=== PATIENT | female | born 1935 | race Caucasian/White ===

== ENCOUNTER 2016-12-30 03:54 | Inpatient (IN) | payer MEDICARE, OTHER ==
[2016-12-30] MEDS ORDERED: DEXTROSE 50%-WATER 25 GM/50 ML DISP.SYRIN IV ONE (04:09)
[2016-12-30] MEDS ORDERED: CALCIUM GLUCONATE 1000 MG/10 ML INJ IV ONE (04:09)
[2016-12-30] MEDS ORDERED: INSULIN REG, HUMAN 100 UNIT/ML 3 ML VIAL (PYX) IV ONE (04:09)
[2016-12-30] MEDS ORDERED: ALBUTEROL SULFATE 0.083% NEB 2.5 MG/3 ML AMPUL NEB ONE ×2 (04:15→04:19)
--- NOTE | 2016-12-30 04:16 | ER Document Report ---
ED General - General Stated Complaint: RESPIRATORY DISTRESS Information source: Emergency Med Personnel Cannot obtain history due to: Unstable vital signs Notes: Patient is an 81-year-old female with past medical history of hypertension, chronic kidney disease with dialysis dependence, COPD, hyperlipidemia, chronic diastolic CHF, who presents by EMS in severe respiratory distress. EMS states the family was extremely unhelpful on scene and did not know patient's medical history. Unclear how long patient's been getting ill but tonight EMS found patient to be in severe respiratory distress, placed her on CPAP and transferred to the emergency department. History is otherwise limited secondary to patient's critical status at time of arrival. TRAVEL OUTSIDE OF THE [place] IN LAST 30 DAYS: No - Related Data Allergies/Adverse Reactions: carbamazepine [From Tegretol] Allergy (Verified 12/30/16 05:11) metformin HCl [From Glucophage] Allergy (Verified 12/30/16 05:11) Home Medications: Current Home Medications Cephalexin [Cephalexin 500 MG Capsule] 1 cap PO QID 12/30/16 [History] Furosemide [Lasix] 20 mg PO ASDIR PRN 12/30/16 [History] Omeprazole Magnesium [Prilosec Otc] 20 mg PO DAILY 12/30/16 [History] RX: Losartan Potassium [Cozaar 25 mg Tablet] 25 mg PO DAILY 12/30/16 [History] RX: Mupirocin [Bactroban 2% Ointment 22 gm] 1 applic TD BID 12/30/16 [History] RX: Nitroglycerin 0.4 mg PO PRN PRN 12/30/16 [History] RX: Tramadol HCl 50 mg PO TID PRN 12/30/16 [History] RX: Zolpidem Tartrate 2.5 mg PO QHS PRN 12/30/16 [History] Sevelamer HCl [Renagel] 1,600 mg PO TID 12/30/16 [History] Past Medical History - General Information source: Emergency Med Personnel Cannot obtain history due to: Unstable vital signs - Social History Smoking Status: Unknown if Ever Smoked Frequency of alcohol use: None Drug Abuse: None Lives with: Family Family History: Reviewed & Not Pertinent - Past Medical History Cardiac Medical History: Reports: Hx Congestive Heart Failure, Hx Coronary Artery Disease, Hx Heart Attack, Hx Hypertension, Hx Peripheral Vascular Disease Pulmonary Medical History: Reports: Hx Pneumonia Neurological Medical History: Reports: Hx Cerebrovascular Accident Endocrine Medical History: Reports: Hx Diabetes Mellitus Type 2, Hx Hypothyroidism Renal/ Medical History: Reports: Hx End Stage Renal Disease, Hx Hemodialysis - Malignancy Medical History: Reports: Hx Colorectal Cancer, Hx Leukemia - Hairy cell leukemia GI Medical History: Reports: Hx Gastroesophageal Reflux Disease, Hx Ulcer Musculoskeltal Medical History: Reports Hx Arthritis - hands Psychiatric Medical History: Reports: Hx Anxiety, Hx Depression Past Surgical History: Reports: Hx Abdominal Surgery - Colon cancer surgery, Hx Cardiac Surgery - pacemaker, Hx Colostomy, Hx Orthopedic Surgery - 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 In respiratory distress HEAD: Atraumatic, normocephalic. EYES: Pupils equal round and reactive to light, extraocular movements intact, sclera anicteric, conjunctiva are normal. ENT: nares patent, oropharynx clear without exudates. Dry mucous membranes. NECK: supple without lymphadenopathy LUNGS: Diffuse rales to the mid lungs bilaterally. Respiratory distress. Tachypnea with respiratory rate into the mid 40s HEART: Regular tachycardia without murmurs ABDOMEN: Soft, nontender, normoactive bowel sounds. No guarding, no rebound. No masses appreciated. EXTREMITIES: no pitting or edema. No cyanosis. NEUROLOGICAL: No focal neurological deficits. Moves all extremities spontaneously and on command. PSYCH: Somnolent SKIN: Warm, Dry, normal turgor, no rashes or lesions noted. Course - Re-evaluation Re-evalutation: 12/30/16 04:11 Patient presents in severe respiratory distress, tachypneic, rales to the bilateral midlung, wheezing and expiratory phase. Initial EKG shows a profoundly widened QRS at 160 with peaked T waves concerning for severe hyperkalemia likely in the setting of missed dialysis. The patient herself is unable to provide any medical history and apparently the family at the home was completely unhelpful to EMS. They did not know the patient's dialysis schedule when she last received dialysis. This is likewise fit with her apparent pulmonary edema on clinical exam. Immediately after seeing the EKG, 3 g of IV calcium gluconate were given and insulin and glucose will be administered. She will also be given albuterol nebulizers and attempt to drive down her potassium. She was immediately transitioned to our BiPAP with improvement of her oxygen saturation. Patient is critically ill this time will require frequent reassessments. She is apparently a full code 12/30/16 04:42 Chemistries have returned and show a normal potassium of 5. EKG changes are possibly secondary to left ventricular hypertrophy as opposed to hyperkalemia. Supper stains have been applied as patient continues to take the BiPAP off. Her lactate is elevated at 5. Chest x-ray shows pulmonary edema and is difficult to ascertain whether or not patient has underlying infection. She has been started on levofloxacin as well as ceftriaxone 12/30/16 04:50 Core temp 96.8. Patient continues require 100% FiO2 on BiPAP to maintain saturations in the 90s. Patient is now able to talk and states that she is having shortness of breath and diffuse chest wall discomfort. I suspect her overall clinical picture be more consistent with volume overload in the setting of a likely underlying pneumonia and do not suspect an acute ACS. Will send a troponin assay testing which I supsect will be elevated secondary to demand and patient's CKD. 12/30/16 04:58 ABG shows severe metabolic acidosis, ph 7.1 without significant pc02 elevations. I discussed this case with the patient's son who is not the bedside reviewing how critically ill the patient is. After reviewing the data and patient's clinical presentation, the family states that she continues to be a full code and they would like her to be intubated should that be necessary 12/30/16 05:53 Patient's work of breathing continues to improve, respiratory on BiPAP now in the mid 20s and FiO2 is completely weaned down to 65%. Her blood pressures have softened somewhat and a fluid bolus has been started given her sepsis. I discussed this case with Dr. Funes who will admit to the ICU. - Vital Signs Vital signs: Temp Pulse Resp BP Pulse Ox 96.8 F L 21 H 107/66 95 12/30/16 04:50 12/30/16 05:51 12/30/16 05:51 12/30/16 05:51 - Laboratory Result Diagrams: 12/30/16 04:02 12/30/16 04:02 Laboratory results interpreted by me: 12/30/16 12/30/16 12/30/16 04:02 04:02 04:02 WBC 25.4 H RBC 3.64 L MCV 113 H MCH 35.6 H MCHC 31.5 L RDW 15.4 H Abs Neuts (Manual) 10.9 H Abs Lymphs (Manual) 12.4 H Absolute Eos (Manual) 0.8 H Carbonic Acid ABG pH ABG pCO2 ABG pO2 ABG HCO3 ABG Total CO2 ABG O2 Saturation Carbon Dioxide 19 L BUN 46 H Creatinine 6.78 H Est GFR ( Amer) 7 L Est GFR (Non-Af Amer) 6 L Glucose 249 H POC Glucose Lactic Acid 5.0 H AST 53 H 12/30/16 12/30/16 04:08 04:15 WBC RBC MCV MCH MCHC RDW Abs Neuts (Manual) Abs Lymphs (Manual) Absolute Eos (Manual) Carbonic Acid 1.37 H ABG pH 7.12 L* ABG pCO2 45.5 H ABG pO2 179.3 H ABG HCO3 14.5 L ABG Total CO2 15.9 L ABG O2 Saturation 98.7 H Carbon Dioxide BUN Creatinine Est GFR ( Amer) Est GFR (Non-Af Amer) Glucose POC Glucose 267 H Lactic Acid AST - Diagnostic Test Radiology reviewed: Image reviewed, Reports reviewed Radiology results interpreted by me: 12/30/16 04:54 Bilateral pulmonary edema - EKG Interpretation by Me Additional EKG results interpreted by me: 12/30/16 04:13 Sinus tachycardia. Rate 126. Profoundly widened QRS 160 with peak T waves. Critical Care Note - Critical Care Note Total time excluding time spent on procedures (mins): 85 Comments: Critical care time spent obtaining history from patient or surrogate, discussions with consultants, development of treatment plan with patient or surrogate, evaluation of patient's response to treatment, examination of patient , ordering and performing treatments and interventions, ordering and review of laboratory studies, re-evaluation of patient's condition, ordering and review of radiographic studies and review of old charts Discharge - Discharge Clinical Impression: Respiratory distress, Lactic acidosis, Severe sepsis Pulmonary edema Qualifiers: Chronicity: acute Qualified Code(s): J81.0 - Acute pulmonary edema Chronic kidney disease Qualifiers: Chronic kidney disease stage: unspecified stage Qualified Code(s): N18.9 - Chronic kidney disease, unspecified Pneumonia Qualifiers: Pneumonia type: due to unspecified organism Laterality: bilateral Lung location : unspecified part of lung Qualified Code(s): J18.9 - Pneumonia, unspecified organism Condition: Critical Disposition: ADMITTED INPATIENT Admitting Provider: [facility] Unit Admitted: ICU
[2016-12-30 04:23] LABS: HEMOGLOBIN 12.9 g/dL (12.0-15.5); HGB HCT DIFFERENCE -2.3; MEAN CORPUSCULAR HEMOGLOBIN 35.6 pg (27.0-33.4); MEAN CORPUSCULAR HGB CONC 31.5 g/dL (32.0-36.0); RED BLOOD COUNT 3.64 10^6/uL (3.72-5.28); RED CELL DISTRIBUTION WIDTH 15.4 % (11.5-14.0); WHITE BLOOD COUNT 25.4 10^3/uL (4.0-10.5)
[2016-12-30 04:32] LABS: ALANINE AMINOTRANSFERASE 24 U/L (9-52); ALBUMIN 4.2 g/dL (3.5-5.0); ALKALINE PHOSPHATASE 80 U/L (38-126); ANION GAP 16 (5-19); ASPARTATE AMINO TRANSFERASE 53 U/L (14-36); BILIRUBIN,TOTAL 0.5 mg/dL (0.2-1.3); BLOOD UREA NITROGEN 46 mg/dL (7-20); CALCIUM 9.6 mg/dL (8.4-10.2); CARBON DIOXIDE 19 mmol/L (22-30); CHLORIDE 102 mmol/L (98-107); CREATININE RESULT 6.78 mg/dL (0.52-1.25); GLUCOSE 249 mg/dL (75-110); PROTHROMBIN TIME 14.3 SEC (11.4-15.4); SODIUM 137.2 mmol/L (137-145); TOTAL PROTEIN 6.9 g/dL (6.3-8.2)
[2016-12-30] MEDS ORDERED: ONDANSETRON HCL INJ/PF 4 MG/2 ML SDV ONE (04:34)
[2016-12-30] MEDS ORDERED: CEFEPIME 2 GM/D5W RTU 50 ML IV ONE (04:46)
[2016-12-30] MEDS ORDERED: LEVOFLOXACIN 750 MG/D5W RTU 150 ML IV ONE (04:46)
[2016-12-30] MEDS ORDERED: DILTIAZEM HCL/D5W 125 ML IV PRN (04:48)
[2016-12-30 04:52] LABS: BASOPHILS % (MANUAL) 0 % (0-2); EOSINOPHILS % (MANUAL) 3 % (0-6); LYMPHOCYTES % (MANUAL) 28 % (13-45); TOTAL CELLS COUNTED 100
[2016-12-30 04:58] LABS: ANISOCYTOSIS SLIGHT; BURR CELLS 1+; OVALOCYTES 1+; POIKILOCYTOSIS 2+; TEAR DROP CELLS 1+; TOXIC GRANULATION 2+; TOXIC VACUOLATION PRESENT
[2016-12-30 05:12] LABS: ARTERIAL BLOOD BASE EXCESS -14.5 mmol/L; ARTERIAL BLOOD O2 SATURATION 98.7 % (94-98)
[2016-12-30 05:13] LABS: MEAN CORPUSCULAR VOLUME 113 fl (80-97)
[2016-12-30] MEDS ORDERED: NORMAL SALINE 1000 ML 500 ML IV ONE ×2 (05:32→08:53)
[2016-12-30] MEDS ORDERED: DEXTROSE 40% GEL 15 GM TUBE PO PRN ×2 (07:30)
[2016-12-30] MEDS ORDERED: INSULIN LISPRO 100 UNIT/ML 3 ML VIAL SUBCUT PRN (07:30)
[2016-12-30] MEDS ORDERED: GLUCAGON,HUMAN RECOMB 1 MG INJ IM PRN (07:30)
[2016-12-30] MEDS ORDERED: DEXTROSE 50%-WATER 25 GM/50 ML DISP.SYRIN IV PRN ×2 (07:30)
[2016-12-30] MEDS ORDERED: ACETAMINOPHEN 325 MG TABLET PO PRN (07:40)
[2016-12-30] MEDS ORDERED: ALBUTEROL SULFATE 0.083% NEB 2.5 MG/3 ML AMPUL NEB PRN (07:40)
[2016-12-30] MEDS ORDERED: NORMAL SALINE 1000 ML 1,000 ML IV PRN ×2 (07:40→21:22)
[2016-12-30] MEDS ORDERED: VANCOMYCIN HCL 0 MG in DEXTROSE 5%-WATER 250 ML IV NR (07:45)
[2016-12-30] MEDS ORDERED: PHARMACY COMMUNICATION ORDER MC NR (07:45)
[2016-12-30 07:48] LABS: ADD ON TESTING BLD IN LAB ACKNOWLEDGE
[2016-12-30] MEDS ORDERED: PHARMACY COMMUNICATION ORDER MC SCH (08:00)
[2016-12-30] MEDS ORDERED: PIPERACILLIN SODIUM/TAZOBACTAM 4.5 GM in NORMAL SALINE 100 ML IV SCH (08:00)
--- NOTE | 2016-12-30 08:11 | EKG REPORT ---
SEVERITY:- ABNORMAL ECG - SINUS TACHYCARDIA VENTRICULAR PREMATURE COMPLEX LEFT ATRIAL ABNORMALITY NONSPECIFIC INTRAVENTRICULAR CONDUCTION DELAY OLD ANTEROLATERAL AK : Confirmed by: Rahul Quintero MD 30-Dec-2016 08:10:33
--- NOTE | 2016-12-30 08:11 | EKG REPORT ---
SEVERITY:- ABNORMAL ECG - SINUS TACHYCARDIA PROBABLE LEFT ATRIAL ABNORMALITY NONSPECIFIC IVCD WITH LAD OLD ANTERIOR WI : Confirmed by: Rahul Quintero MD 30-Dec-2016 08:10:58
--- NOTE | 2016-12-30 08:12 | EKG REPORT ---
SEVERITY:- ABNORMAL ECG - SINUS TACHYCARDIA VENTRICULAR PREMATURE COMPLEX NONSPECIFIC INTRAVENTRICULAR CONDUCTION DELAY OLD ANTERIOR NC : Confirmed by: Rahul Quintero MD 30-Dec-2016 08:11:32
--- NOTE | 2016-12-30 08:38 | PDOC H&P ---
History of Present Illness Admission Date/PCP: 12/30/16 06:20 Dr. Kim Reese--Nephr Dr. Quintero Patient complains of: difficulty breathing History of Present Illness: CEM SANDERS is a 81 year old female with a rather complicated past medical history, including hypertension, end-stage chronic kidney disease, on hemodialysis Friday, nonhome O2 dependent COPD, hyperlipidemia, chronic diastolic congestive heart failure, and with a permanent colostomy, status post segmental colon resection for carcinoma who presents to the emergency room for evaluation of above complaint. She awoke suddenly at 3 AM this morning telling her son, with whom she lives, that she was having difficulty breathing. EMS was called and found the patient in severe respiratory distress. Of note, please see comments made by the emergency room physician in his initial notes concerning the scene upon EMS arrival. Of note, both patient and son are somewhat poor historians concerning both acute and chronic aspects of her health issues. Patient was placed on CPAP and transferred to the emergency department. She initially appeared quite critically ill and the emergency room physician had a quite herson discussion with son concerning her CODE STATUS. He stated that she is indeed a full code. She has improved considerably since undergoing ER treatment, including placement of BiPAP. Currently resting quietly, complaining only of right-sided chest wall pain, that is easily reproducible with compression along the lateral right chest wall. Son states that patient was doing "fine" yesterday. Normally she ambulates about the house unassisted, although occasionally uses a cane. Patient has been discussed with emergency room physician who evaluated the patient. Emergency room physician was concerned about hyperkalemia upon initial evaluation of patient's EKG, which basically did not change with multiple tracings. Patient was given 3 ampules of calcium gluconate. Laboratory results are listed in [facility] and are reviewed. X-ray summary results are listed below, with full report(s) reviewed. . EKG reviewed. And compared to a tracing from the of this month. Social history/personal habits: . Lives with son. No use of tobacco alcohol or illicit drugs. Allergies/adverse reactions are listed in [facility] and are reviewed. Home medications are reviewed by bottle review and have been reconciled by nursing staff in [facility]. Home medications initially autopopulated into [facility] may not accurately reflect patient's true medications, dosages, and/or frequencies. Of note, not all medications were brought to the hospital. Order has been written to staff to contact only, primary care provider and/or pharmacy to more completely determine her medication list and to contact physician and that is been accomplished. REVIEW OF SYSTEMS: See history and present illness.No further information available this point in time. PHYSICAL EXAMINATION: 5 feet tall. 67.5 kg. BMI 29.1 kg/m. Blood pressure 105/49. Pulse 111 and slightly irregular. 94% saturation of 65% FiO2, BiPAP 12/6. Respirations are 29 and unlabored. Temperature 97.2. Slightly overweight otherwise well-nourished well-developed elderly female appearing approximately her stated age. Somewhat fatigued, but overall awake alert pleasant and cooperative. Mildly anxious, without agitation. Son is present at her side; patient approves. Skin is warm and dry. No grossly obvious evidence of rash in areas of skin examined. No subcutaneous nodules palpated. ENT: Hearing grossly normal to normal conversation. Tongue midline on protrusion pink and slightly tacky. Exam slightly limited by BiPAP mask with attaching straps. Eyes: No scleral icterus. Pupils equal and reactive to light at 4 mm. [place] conjunctivae. Neck is supple and nontender to gentle active range of motion and palpation. Midline trachea. No palpable thyroid nodule mass enlargement or tenderness. Lymphatic: No palpable cervical or clavicular nodes. Neck and lymphatic exams limited by patient body habitus. Exam slightly limited by BiPAP mask with attaching straps. Psychiatric: Fair to reasonable insight into acute and chronic medical issues, although as noted above, somewhat of a poor historian concerning same. . Lungs: Auscultation reveals equal breath sounds bilaterally. No use of accessory respiratory muscles. Slightly coarse breath sounds diffusely bilaterally. Cardiovascular: Heart slightly irregular rate and rhythm, without gallop murmur or rub. No carotid or abdominal aortic bruits. No ankle or pedal edema. Faintly palpable dorsalis pedis pulses. Compression of her right lateral chest wall easily reproduces her chest pain. No such pain on compression of the left chest wall. Abdomen: soft, slightly obese, slightly distended nontender with positive bowel sounds. Unable to adequately evaluate abdomen for masses or organomegaly due to body habitus and distention. Colostomy bag present over lower abdominal stoma. Extremities: Feet are warm and dry. No calf tenderness to compression. No grossly obvious visual evidence of calf swelling. Gentle manipulation of lower extremities fails to reveal any obvious evidence of injury or instability to knees hips or ankles. Neurologic: Moves upper extremities grossly normally. Patellar reflexes absent. Absent Babinski. Light touch can't be determined due to her current status. Dorsiflexion and plantarflexion of feet 5 / 5 and symmetric. Past Medical History Cardiac Medical History: Reports: Congestive Heart Failure, Coronary Artery Disease, Myocardial Infarction, Hypertension, Peripheral Vascular Disease Pulmonary Medical History: Reports: Chronic Obstructive Pulmonary Disease (COPD) , Pneumonia Denies: Sleep Apnea EENT Medical History: Reports: Eyes - Glasses Neurological Medical History: Reports: Ischemic CVA Denies: Seizures Endocrine Medical History: Reports: Diabetes Mellitus Type 2, Hypothyroidism Denies: Hyperthyroidism Renal/ Medical History: Reports: End Stage Renal Disease Malignancy Medical History: Reports: Colorectal Cancer, Leukemia - Hairy cell leukemia GI Medical History: Reports: Gastroesophageal Reflux Disease Denies: Cirrhosis, Hepatitis Musculoskeltal Medical History: Reports: Arthritis - hands Psychiatric Medical History: Reports: Depression Denies: Alcohol Dependency, Substance Abuse, Tobacco Dependency Hematology: Reports: Anemia Infectious Medical History: Denies: Hepatitis B, Hepatitis C Past Surgical History Past Surgical History: Reports: Colostomy, Orthopedic Surgery - 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., Tonsillectomy, Vascular Surgery - Right subclavian perm cath Denies: Pacemaker Social History Information Source: Patient, Relative, Emergency Med Personnel, [facility] Records Lives with: Family Smoking Status: Unknown if Ever Smoked Frequency of Alcohol Use: None Hx Recreational Drug Use: No Hx Prescription Drug Abuse: No - Advance Directive Resuscitation Status: Full Code Surrogate healthcare decision maker:: Son, who is present at her side with her approval Family History Family History: Reviewed & Not Pertinent Parental Family History Reviewed: Yes Children Family History Reviewed: Yes Sibling(s) Family History Reviewed.: Yes Medication/Allergy Home Medications: Calcium 600 Mg Tab 600 mg PO BIDPCBS 12/30/16 Calcium Carbonate [Tums Chewable 500 mg Tab.chew] 1,000 mg PO DAILY 12/30/16 Clopidogrel Bisulfate [Plavix 75 mg Tablet] 75 mg PO DAILY 12/30/16 Furosemide [Lasix] 20 mg PO MOWEFR@1000 12/30/16 Glimepiride [Amaryl 1 mg Tablet] 1 mg PO DAILY 12/30/16 Levothyroxine Sodium [Synthroid] 175 mcg PO DAILY 12/30/16 Loratadine [Claritin 10 mg Tablet] 10 mg PO QHS 12/30/16 Metoprolol Tartrate [Lopressor 50 mg Tablet] 50 mg PO Q12 12/30/16 Mupirocin Calcium [Bactroban 2% Cream 15 gm] 1 applic TOP Q12 12/30/16 Nitroglycerin [Nitrostat 0.4 mg (1/150 Gr) Tabs 25/Bottle] 0.4 mg SL Q5MP PRN Pantoprazole Sodium [Protonix] 40 mg PO [id number] 12/30/16 RX: Allopurinol [Zyloprim 100 mg Tablet] 100 mg PO QHS 12/30/16 RX: Aspirin [Aspirin EC] 81 mg PO DAILY 12/30/16 RX: Clonidine HCl [Catapres 0.1 mg Tablet] 0.1 mg PO QHS 12/30/16 RX: Ferrous Sulfate [Feosol 325 mg Tablet] 325 mg PO DAILY 12/30/16 RX: Gabapentin 100 mg PO Q8 12/30/16 RX: Magnesium Oxide [Magnesium] 400 mg PO DAILY 12/30/16 RX: Nystatin [Mycostatin Cream 15 gm] 1 applic TOP Q12 12/30/16 Sevelamer HCl [Renagel] 1,600 mg PO TID 12/30/16 Tramadol HCl [Ultram] 50 mg PO QIDP PRN 12/30/16 Valsartan [Diovan 80 mg Tablet] 80 mg PO DAILY 12/30/16 Zolpidem Tartrate [Ambien 5 mg Tablet] 2.5 mg PO QHS 12/30/16 Allergies/Adverse Reactions: metformin Allergy (Unknown, Unverified 12/30/16 17:10) carbamazepine [From Tegretol] Allergy (Verified 12/30/16 05:11) metformin HCl [From Glucophage] Allergy (Verified 12/30/16 05:11) [id number] Reductase Inhibitor Allergy (Unverified 12/30/16 17:10) Physical Exam Vital Signs: Temp Pulse Resp BP Pulse Ox 96.8 F L 24 H 97/39 L 96 12/30/16 04:50 12/30/16 08:01 12/30/16 08:01 12/30/16 08:01 Results Impressions: Chest X-Ray 12/30/16 04:06 IMPRESSION: Moderate to severe CHF pattern. Differential diagnosis includes multifocal pneumonia. Assessment & Plan - Diagnosis (2) Acute and chronic respiratory failure Qualifiers: Respiratory failure complication: unspecified whether with hypoxia or hypercapnia Qualified Code(s): J96.20 - Acute and chronic respiratory failure, unspecified whether with hypoxia or hypercapnia Is this a current diagnosis for this admission?: YesPlan: Patient will be admitted under pneumonia protocol. Incentive spirometry twice a day. Scheduled DuoNeb's. PRN albuterol nebs IV Pepcid for gastritis prophylaxis. Pulmonology consult. Antibiotics will consist of intravenous vancomycin and Levaquin, along with Zosyn. Pharmacy to assist with dosing.. Patient is a full code. I have strongly encouraged patient not to get out of bed , to avoid a fall with injury. Knee high SCDs for DVT prophylaxis, along with subcutaneous heparin. Impression and plans were discussed with patient, and son, both of whom concur. Time spent in evaluation and management of patient: 85 critical care minutes. (3) Elevated troponin Is this a current diagnosis for this admission?: YesPlan: Serial enzymes. Cardiology consult with Dr. Quintero. (4) Pneumonia Qualifiers: Pneumonia type: due to unspecified organism Laterality: bilateral Lung location: unspecified part of lung Qualified Code(s): J18.9 - Pneumonia, unspecified organism Is this a current diagnosis for this admission?: Yes (5) ESRD (end stage renal disease) Is this a current diagnosis for this admission?: YesPlan: Nephrology consult - Inpatient Certification Based on my medical assessment, after consideration of the patient's comorbidities, presenting symptoms, or acuity I expect that the services needed warrant INPATIENT care.: Yes I certify that my determination is in accordance with my understanding of Medicare's requirements for reasonable and necessary INPATIENT services [42 CFR 412.3e].: Yes Medical Necessity: Need Close Monitoring Due to Risk of Patient Decompensation, Need For IV Fluids, Need For Continuous Telemetry Monitoring, Need for Nebulizer Therapy and Monitoring of Response, Need for IV Antibiotics, Risk of Diagnosis Which Will Require Inpatient Eval/Care/Monitoring Post Hospital Care: D/C or Transfer Summary
[2016-12-30] MEDS ORDERED: DEXTROSE 5%-1/2 NORMAL SALINE 1,000 ML IV ONE (08:53)
[2016-12-30] MEDS: IPRATROPIUM/ALBUTEROL 0.5-2.5 MG/3 ML AMPUL NEB SCH ×3 (09:03→20:56)
[2016-12-30] MEDS: METOPROLOL TARTRATE 50 MG TABLET PO SCH ×2 (09:44→22:48)
[2016-12-30] MEDS ORDERED: CLONIDINE HCL 0.1 MG TABLET PO SCH (10:00)
[2016-12-30] MEDS ORDERED: VANCOMYCIN HCL 1,000 MG in DEXTROSE 5%-WATER 250 ML IV ONE (10:00)
[2016-12-30] MEDS ORDERED: LOSARTAN POTASSIUM 25 MG TABLET PO SCH (10:00)
[2016-12-30] MEDS ORDERED: LEVOFLOXACIN 750 MG/D5W RTU 150 ML IV SCH (10:00)
[2016-12-30] MEDS ORDERED: GABAPENTIN 100 MG CAPSULE PO SCH ×2 (10:00→14:00)
[2016-12-30] MEDS: HEPARIN SOD (PORCINE) 5,000 UNIT/ML 1 ML SYRINGE SUBCUT SCH (10:21)
[2016-12-30] MEDS ORDERED: EPINEPHRINE INJ 1 MG/10 ML DISP.SYRIN ONE ×2 (11:00→20:19)
[2016-12-30] MEDS ORDERED: AMIODARONE HCL INJ 150 MG/3 ML VIAL IV ONE (11:00)
[2016-12-30] MEDS ORDERED: SODIUM BICARBONATE 8.4% INJ 50 MEQ/50 ML DISP.SYRIN ONE ×2 (11:00→21:29)
[2016-12-30 11:09] LABS: VENOUS BLOOD BASE EXCESS -13.1 mmol/L; VENOUS BLOOD HCO3 15.3 mmol/L (20-32); VENOUS BLOOD PCO2 44.4 mmHg (35-63)
--- NOTE | 2016-12-30 11:19 | PDOC PROGRESS REPORT ---
Subjective Progress Note for:: 12/30/16 Subjective:: This 81-year-old woman has a history of hypertension, end-stage renal disease on hemodialysis Friday, COPD not on home oxygen, and chronic diastolic congestive heart failure. She is also status post 2 segmental colon resection for carcinoma and has a colostomy. She awoke suddenly this morning with severe shortness of breath. She was brought to the ED by EMS. She has been somewhat hypoxemic and has required CPAP. The initial chest x-ray is consistent with CHF versus multifocal pneumonia. The patient admits to orthopnea and PND. She denies a productive cough. She denies fever or chills. Pulmonary cardiology and nephrology consultations are pending. Physical Exam Vital Signs: Temp Pulse Resp BP Pulse Ox 97.2 F 32 H 125/108 H 97 12/30/16 08:42 12/30/16 10:34 12/30/16 10:16 12/30/16 10:34 General appearance: PRESENT: no acute distress, mild distress, other - pleasant and conversant Head exam: PRESENT: atraumatic, normocephalic Eye exam: PRESENT: conjunctiva pink, EOMI, PERRLA. ABSENT: scleral icterus Ear exam: PRESENT: normal external ear exam Mouth exam: PRESENT: moist, tongue midline Neck exam: ABSENT: carotid bruit, JVD, lymphadenopathy, thyromegaly Respiratory exam: PRESENT: other - coarse breath sounds in all lung engel Cardiovascular exam: PRESENT: RRR, systolic murmur. ABSENT: rubs Pulses: PRESENT: normal dorsalis pedis pul Vascular exam: PRESENT: normal capillary refill GI/Abdominal exam: PRESENT: normal bowel sounds, soft, other - ostomy. ABSENT: distended, guarding, mass, organolmegaly, rebound, tenderness Rectal exam: PRESENT: deferred Extremities exam: PRESENT: full ROM. ABSENT: calf tenderness, clubbing, pedal edema Neurological exam: PRESENT: alert, awake, oriented to person, oriented to place , oriented to time, oriented to situation, CN II-XII grossly intact. ABSENT: motor sensory deficit Psychiatric exam: PRESENT: appropriate affect, normal mood. ABSENT: homicidal ideation, suicidal ideation Skin exam: PRESENT: dry, intact, warm. ABSENT: cyanosis, rash Results Laboratory Results: 12/30/16 08:37 Lactic Acid 3.3 H Impressions: Chest X-Ray 12/30/16 04:06 IMPRESSION: Moderate to severe CHF pattern. Differential diagnosis includes multifocal pneumonia. Assessment & Plan - Diagnosis (1) Acute and chronic respiratory failure with hypoxia Plan: We'll provide oxygen supplementation as needed. BiPAP as needed. (2) CHF (congestive heart failure) Is this a current diagnosis for this admission?: YesPlan: Cardiology consultation is pending. She does make a little urine. She has end- stage renal disease on hemodialysis Friday. (3) Pneumonia Qualifiers: Pneumonia type: due to unspecified organism Laterality: bilateral Lung location: unspecified part of lung Qualified Code(s): J18.9 - Pneumonia , unspecified organism Is this a current diagnosis for this admission?: YesPlan: The chest x-ray suggests CHF versus pneumonia. She has an elevated WBC 25.4 and lactate 5.0, now down to 3.3. She is currently on levofloxacin Zosyn and vancomycin. (4) Lactic acidosis Is this a current diagnosis for this admission?: YesPlan: Broad-spectrum antibiotics in progress. We'll monitor. (5) Hypotension Plan: Have given 1 L of normal saline. Have started Levophed drip. (6) CAD (coronary artery disease) Is this a current diagnosis for this admission?: Yes (7) Elevated troponin Is this a current diagnosis for this admission?: YesPlan: Follow-up troponins are pending. (8) ESRD (end stage renal disease) Is this a current diagnosis for this admission?: YesPlan: On hemodialysis Friday. Nephrology to see. - Time Time Spent with patient: 35 or more minutes
[2016-12-30 11:27] LABS: VENOUS BLOOD PH 7.16 (7.30-7.42)
[2016-12-30 11:32] LABS: CREATINE KINASE MB 27.6 ng/mL (<4.55)
[2016-12-30] MEDS: PIPERACILLIN SODIUM/TAZOBACTAM 2.25 GM in NORMAL SALINE 50 ML IV SCH ×2 (12:11→17:40)
[2016-12-30 12:13] LABS: TROPONIN I 6.24 ng/mL
--- NOTE | 2016-12-30 12:21 | PDOC CONSULTATION ---
Consultation Consult Date: 12/30/16 Attending physician:: JUAN CARLOS ORTIZ Consult reason:: dyspnea History of Present Illness Admission Date/PCP: 12/30/16 07:40 GURINDER FERNANDO MD History of Present Illness: CEM SANDERS is a 81 year old female with a rather complicated past medical history, including hypertension, end-stage chronic kidney disease, on hemodialysis Friday, non-home O2 dependent COPD(O2 had been taken from her several years ago), hyperlipidemia, chronic diastolic congestive heart failure, and with a permanent colostomy, status post segmental colon resection for carcinoma who presents to the emergency room for evaluation of above complaint. She awoke suddenly at 3 AM this morning telling her son, with whom she lives, that she was having difficulty breathing. Patient was placed on CPAP and transferred to the emergency department. She initially appeared quite critically ill and the emergency room physician had a quite herson discussion with son concerning her CODE STATUS. He stated that she is indeed a full code. She has improved considerably since undergoing ER treatment, including placement of BiPAP. Currently resting quietly, complaining only of right-sided chest wall pain, that is easily reproducible with compression along the lateral right chest wall.Normally she ambulates about the house unassisted, although occasionally uses a cane. She denies history of chronic lung disease as a child or as an adult she denies hemoptysis her PPD status is unknown she admits to exposure to passive smoke as a child as well as an adult she denies any significant exposure to potential respiratory toxins she has no pets no recent travel he rarely does she has some tightness in her chest sleeps on 2 pillows rare PND no nocturnal cough frequent edema. She states she sleeps poorly and snores she is restless when she sleeps his unrestful sleep and excessive daytime somnolence. Past Medical History Cardiac Medical History: Reports: Congestive Heart Failure, Coronary Artery Disease, Myocardial Infarction, Hypertension, Peripheral Vascular Disease Pulmonary Medical History: Reports: Chronic Obstructive Pulmonary Disease (COPD) , Pneumonia Denies: Sleep Apnea EENT Medical History: Reports: Eyes - Glasses Neurological Medical History: Reports: Ischemic CVA Denies: Seizures Endocrine Medical History: Reports: Diabetes Mellitus Type 2, Hypothyroidism Denies: Hyperthyroidism Renal/ Medical History: Reports: End Stage Renal Disease Malignancy Medical History: Reports: Colorectal Cancer, Leukemia - Hairy cell leukemia GI Medical History: Reports: Gastroesophageal Reflux Disease Denies: Cirrhosis, Hepatitis Musculoskeltal Medical History: Reports: Arthritis - hands Psychiatric Medical History: Reports: Depression Denies: Alcohol Dependency, Substance Abuse, Tobacco Dependency Hematology: Reports: Anemia Infectious Medical History: Denies: Hepatitis B, Hepatitis C Past Surgical History Past Surgical History: Reports: Colostomy, Orthopedic Surgery - 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., Tonsillectomy, Vascular Surgery - Right subclavian perm cath Denies: Pacemaker Social History Information Source: Patient, [facility] Records Lives with: Family Smoking Status: Never Smoker Passive smoke exposure as: Both Frequency of Alcohol Use: None Hx Recreational Drug Use: No Hx Prescription Drug Abuse: No Have you had any respiratory illnesses as a child?: No Have you been exposed to any sick contacts recently?: No Have you had any recent respiratory illnesses?: No Have you travelled outside of [place] in the past 12 months?: No - Advance Directive Resuscitation Status: Full Code Family History Family History: Reviewed & Not Pertinent Parental Family History Reviewed: Yes Children Family History Reviewed: Yes Sibling(s) Family History Reviewed.: Yes Medication/Allergy Home Medications: Gabapentin [Neurontin 100 mg Capsule] 100 mg PO Q8 #0 capsule 08/16/14 Allopurinol 100 mg PO QHS 01/20/15 Aspirin [Aspirin 81 mg Chewable Tablet] 81 mg PO DAILY 01/20/15 Clonidine HCl [Catapres] 0.1 mg PO DAILY 11/16/15 Metoprolol Tartrate [Lopressor 50 mg Tablet] 50 mg PO Q12H 11/16/15 Oxycodone HCl/Acetaminophen [Oxycodone-Acetaminophen 5-325] 1 tab PO QID PRN Cephalexin [Cephalexin 500 MG Capsule] 1 cap PO QID 12/30/16 Furosemide [Lasix] 20 mg PO ASDIR PRN 12/30/16 Losartan Potassium [Cozaar 25 mg Tablet] 25 mg PO DAILY 12/30/16 Mupirocin [Bactroban 2% Ointment 22 gm] 1 applic TD BID 12/30/16 Nitroglycerin 0.4 mg PO PRN PRN 12/30/16 Omeprazole Magnesium [Prilosec Otc] 20 mg PO DAILY 12/30/16 Sevelamer HCl [Renagel] 1,600 mg PO TID 12/30/16 Tramadol HCl 50 mg PO TID PRN 12/30/16 Zolpidem Tartrate 2.5 mg PO QHS PRN 12/30/16 Allergies/Adverse Reactions: carbamazepine [From Tegretol] Allergy (Verified 12/30/16 05:11) metformin HCl [From Glucophage] Allergy (Verified 12/30/16 05:11) Physical Exam Vital Signs: Temp Pulse Resp BP Pulse Ox 97.2 F 102 H 16 118/50 L 100 12/30/16 08:42 12/30/16 09:03 12/30/16 11:16 12/30/16 11:16 12/30/16 11:16 General appearance: PRESENT: no acute distress, cooperative, disheveled, obese Head exam: PRESENT: atraumatic, normocephalic Eye exam: PRESENT: conjunctiva pale, EOMI Mouth exam: PRESENT: moist, neck supple, tongue midline, other - [place] 4 Neck exam: ABSENT: carotid bruit, JVD, lymphadenopathy, thyromegaly Respiratory exam: PRESENT: decreased breath sounds, prolonged expiratory phas, rales, rhonchi, symmetrical, unlabored Cardiovascular exam: PRESENT: RRR, +S1, +S2 Pulses: PRESENT: normal radial pulses GI/Abdominal exam: PRESENT: normal bowel sounds, soft. ABSENT: distended, guarding, mass, organolmegaly, rebound, tenderness Rectal exam: PRESENT: deferred Gentrourinary exam: PRESENT: indwelling catheter Extremities exam: PRESENT: +1 edema Neurological exam: PRESENT: alert, awake Psychiatric exam: PRESENT: normal mood Skin exam: PRESENT: dry, intact Results Laboratory Results: 12/30/16 12/30/16 08:37 10:54 VBG pH 7.16 L* VBG pCO2 44.4 VBG HCO3 15.3 L VBG Base Excess -13.1 Lactic Acid 3.3 H 12/30/16 10:54 Creatine Kinase 370 H Impressions: Chest X-Ray 12/30/16 04:06 IMPRESSION: Moderate to severe CHF pattern. Differential diagnosis includes multifocal pneumonia. Assessment & Plan - Diagnosis (1) Acute and chronic respiratory failure with hypoxia Is this a current diagnosis for this admission?: YesPlan: Multifactorial (chronic renal failure, congestive heart failure, pneumonia) elevated white count radiographs suggest pneumonia however patient is not coughing up any purulent sputum abnormal lymphocytes seen in differential (2) CHF (congestive heart failure) Is this a current diagnosis for this admission?: YesPlan: Check recurrent echocardiogram (3) Chronic kidney disease Qualifiers: Chronic kidney disease stage: unspecified stage Qualified Code(s): N18.9 - Chronic kidney disease, unspecified Is this a current diagnosis for this admission?: YesPlan: As per nephrology (4) Lactic acidosis Is this a current diagnosis for this admission?: Yes (5) Pulmonary edema Qualifiers: Chronicity: acute Qualified Code(s): J81.0 - Acute pulmonary edema Is this a current diagnosis for this admission?: YesPlan: Acute on chronic (6) ESRD (end stage renal disease) Is this a current diagnosis for this admission?: YesPlan: Hemodialysis 3 times per week
[2016-12-30 12:48] LABS: PATH REVIEW PATHOLOGIST REVIEWED
[2016-12-30] MEDS ORDERED: TRAMADOL HCL 50 MG TABLET PO PRN (13:14)
[2016-12-30] MEDS ORDERED: HEPARIN SOD (PORCINE) 1,000 UNIT/ML 10 ML VIAL IV PRN (16:07)
[2016-12-30 16:49] LABS: CREATINE KINASE MB 37.5 ng/mL (<4.55)
[2016-12-30 16:54] LABS: TROPONIN I 17.6 ng/mL
[2016-12-30] MEDS ORDERED: ALPRAZOLAM 0.25 MG TABLET PO PRN (17:46)
[2016-12-30] MEDS ORDERED: MORPHINE SULFATE 10 MG/ML INJ ONE (18:04)
[2016-12-30] MEDS ORDERED: NITROGLYCERIN 0.4 MG/TAB 25 TAB/BOTTLE SL PRN (18:05)
[2016-12-30] MEDS ORDERED: DOBUTAMINE HCL/D5W 250 ML IV PRN (18:18)
[2016-12-30] MEDS: NITROGLYCERIN 2% OINTMENT 1 GM PACKET TP SCH (18:28)
[2016-12-30] MEDS: MORPHINE SULFATE 10 MG/ML INJ IV PRN ×2 (18:28→22:49)
[2016-12-30 18:48] LABS: ARTERIAL BLOOD BASE EXCESS -4.7 mmol/L; ARTERIAL BLOOD O2 SATURATION 94.4 % (94-98)
[2016-12-30] MEDS ORDERED: DOPAMINE HCL/DEXTROSE 5%-WATER 800 MG/250 ML RTUINJ IV ONE (19:04)
--- NOTE | 2016-12-30 19:35 | PDOC CONSULTATION ---
Consultation Consult Date: 12/30/16 Consult reason:: Urgent hemodialysis in the setting of ESRD in congestive heart failure with severe critical aortic stenosis. History of Present Illness Admission Date/PCP: 12/30/16 07:40 GURINDER FERNANDO MD History of Present Illness: As his last dialysis he is an 81-year-old lady with a background medical history of severe comorbidities which include diabetes mellitus with multiple complications including ESRD on hemodialysis, hypertension, severe critical aortic stenosis with a gradient of 70 mmHg as per record done in 2015, is brought to the ER with history of acute and sudden onset of shortness of breath. Patient is currently on BiPAP and unable to give a proper history. Therefore chart review was done. She says she is also had a right-sided pleuritic-type Of chest pain. She denies any history of fever chills. Patient evaluation revealed that she most likely is in congestive heart failure even though differential includes bilateral bronchopneumonia. She is currently undergoing hemodialysis but she has dropped her blood pressure and is proving difficult to extract much fluid. Still continuing to be in respiratory failure and on BiPAP and its looks like she might need to be intubated as she is also full code. Past Medical History Cardiac Medical History: Reports: Coronary Artery Disease, Hypertension-primary , Myocardial Infarction, Peripheral Vascular Disease, Valvular Heart disease - History of severe critical aortic stenosis as per review of echocardiogram Pulmonary Medical History: Reports: Chronic Obstructive Pulmonary Disease (COPD) , Pneumonia Denies: Sleep Apnea EENT Medical History: Reports: Eyes - Glasses Neurological Medical History: Reports: Ischemic CVA Denies: Seizures Endocrine Medical History: Reports: Diabetes Mellitus Type 2, Hypothyroidism Denies: Hyperthyroidism Renal/ Medical History: Reports: End Stage Renal Disease Malignancy Medical History: Reports: Colorectal Cancer, Leukemia - Hairy cell leukemia GI Medical History: Reports: Gastroesophageal Reflux Disease Denies: Cirrhosis, Hepatitis Musculoskeltal Medical History: Reports: Arthritis - hands Psychiatric Medical History: Reports: Depression Denies: Alcohol Dependency, Substance Abuse, Tobacco Dependency Infectious Medical History: Denies: Hepatitis B, Hepatitis C Hematology Medical History: Reports Anemia of Chronic Kidney Disease Past Surgical History Past Surgical History: Reports: Colostomy, Orthopedic Surgery - 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., Tonsillectomy, Vascular Surgery - Right subclavian perm cath Denies: Pacemaker Social History Lives with: Family Smoking Status: Never Smoker Frequency of Alcohol Use: None Hx Recreational Drug Use: No Hx Prescription Drug Abuse: No - Advance Directive Resuscitation Status: Full Code Family History Parental Family History Reviewed: No Children Family History Reviewed: No Sibling(s) Family History Reviewed.: No Medication/Allergy Home Medications: Allopurinol [Zyloprim 100 mg Tablet] 100 mg PO QHS 12/30/16 Aspirin [Aspirin EC] 81 mg PO DAILY 12/30/16 Calcium 600 Mg Tab 600 mg PO BIDPCBS 12/30/16 Calcium Carbonate [Tums Chewable 500 mg Tab.chew] 1,000 mg PO DAILY 12/30/16 Clonidine HCl [Catapres 0.1 mg Tablet] 0.1 mg PO QHS 12/30/16 Clopidogrel Bisulfate [Plavix 75 mg Tablet] 75 mg PO DAILY 12/30/16 Ferrous Sulfate [Feosol 325 mg Tablet] 325 mg PO DAILY 12/30/16 Furosemide [Lasix] 20 mg PO MOWEFR@1000 12/30/16 Gabapentin 100 mg PO Q8 12/30/16 Glimepiride [Amaryl 1 mg Tablet] 1 mg PO DAILY 12/30/16 Levothyroxine Sodium [Synthroid] 175 mcg PO DAILY 12/30/16 Loratadine [Claritin 10 mg Tablet] 10 mg PO QHS 12/30/16 Magnesium Oxide [Magnesium] 400 mg PO DAILY 12/30/16 Metoprolol Tartrate [Lopressor 50 mg Tablet] 50 mg PO Q12 12/30/16 Mupirocin Calcium [Bactroban 2% Cream 15 gm] 1 applic TOP Q12 12/30/16 Nitroglycerin [Nitrostat 0.4 mg (1/150 Gr) Tabs 25/Bottle] 0.4 mg SL Q5MP PRN Nystatin [Mycostatin Cream 15 gm] 1 applic TOP Q12 12/30/16 Pantoprazole Sodium [Protonix] 40 mg PO [id number] 12/30/16 Sevelamer HCl [Renagel] 1,600 mg PO TID 12/30/16 Tramadol HCl [Ultram] 50 mg PO QIDP PRN 12/30/16 Valsartan [Diovan 80 mg Tablet] 80 mg PO DAILY 12/30/16 Zolpidem Tartrate [Ambien 5 mg Tablet] 2.5 mg PO QHS 12/30/16 Allergies/Adverse Reactions: metformin Allergy (Unknown, Unverified 12/30/16 17:10) carbamazepine [From Tegretol] Allergy (Verified 12/30/16 05:11) metformin HCl [From Glucophage] Allergy (Verified 12/30/16 05:11) [id number]-[id number]-Prc Reductase Inhibitor Allergy (Unverified 12/30/16 17:10) Review of Systems Review of Systems: Constitutional: [PRESENT: as per HPI. ABSENT: chills, fever(s), headache(s), weight gain, weight loss] Eyes: [ABSENT: visual disturbances] Ears: [ABSENT: hearing changes] Cardiovascular: [ABSENT: palpitations] Respiratory: [ABSENT: cough, hemoptysis] Gastrointestinal: [ABSENT: abdominal pain, constipation, diarrhea, hematemesis, hematochezia, nausea, vomiting] Genitourinary: [ABSENT: dysuria, hematuria] Musculoskeletal: [ABSENT: joint swelling] Integumentary: [ABSENT: rash, wounds] Neurological: [ABSENT: abnormal gait, abnormal speech, confusion, dizziness, focal weakness, syncope] Psychiatric: [ABSENT: anxiety, depression, homicidal ideation, suicidal ideation ] Endocrine: [ABSENT: cold intolerance, heat intolerance,polydipsia, polyuria] Hematologic/Lymphatic: [ABSENT: easy bleeding, easy bruising, lymphadenopathy] Physical Exam Vital Signs: Temp Pulse Resp BP Pulse Ox 97.7 F 113 H 31 H 122/52 L 94 12/30/16 16:00 12/30/16 16:00 12/30/16 16:00 12/30/16 16:00 12/30/16 16:00 Intake & Output 12/29/16 12/30/16 12/31/16 06:59 06:59 06:59 Output Total 0 Balance 0 Weight 67.2 kg General appearance: PRESENT: severe distress Eye exam: PRESENT: EOMI, PERRLA. ABSENT: nystagmus, periorbital swelling Ear exam: PRESENT: normal external ear exam Mouth exam: PRESENT: moist Neck exam: ABSENT: lymphadenopathy, meningismus, tenderness, thyromegaly, tracheal deviation Respiratory exam: PRESENT: chest wall tenderness - On the right chest, crackles - Generalized, prolonged expiratory phas, rales, rhonchi, tachypnea. ABSENT: clear to auscultation stan Cardiovascular exam: PRESENT: +S1, +S2, systolic murmur Pulses: ABSENT: +1 pedal pulses bilateral GI/Abdominal exam: PRESENT: soft. ABSENT: firm, guarding, mass, tenderness Extremities exam: PRESENT: +1 edema. ABSENT: calf tenderness Neurological exam: PRESENT: altered, oriented to place Psychiatric exam: PRESENT: agitated, anxious Skin exam: PRESENT: cyanosis - on the right foot that she has also had amputation of lateral digits, erythema, mottled, pallor. ABSENT: rash Results Laboratory Results: 12/30/16 12/30/16 12/30/16 08:37 10:54 18:40 Carbonic Acid 1.04 L HCO3/H2CO3 Ratio 18:1 ABG pH 7.38 ABG pCO2 34.4 L ABG pO2 72.2 L ABG HCO3 19.7 L ABG O2 Saturation 94.4 ABG Base Excess -4.7 VBG pH 7.16 L* VBG pCO2 44.4 VBG HCO3 15.3 L VBG Base Excess -13.1 FiO2 60% Lactic Acid 3.3 H 12/30/16 12/30/16 12/30/16 10:54 10:54 16:10 Creatine Kinase 370 H 407 H CK-MB (CK-2) 27.60 H Troponin I 6.240 12/30/16 16:10 Creatine Kinase CK-MB (CK-2) 37.50 H Troponin I 17.600 Impressions: Chest X-Ray 12/30/16 18:04 IMPRESSION: STABLE APPEARANCE OF THE CHEST INCLUDING MULTIFOCAL AIRSPACE DISEASE BILATERAL PLEURAL EFFUSIONS. DIFFERENTIAL INCLUDES ASYMMETRIC PULMONARY EDEMA, MULTIFOCAL PNEUMONIA, AND ARDS. Assessment & Plan - Diagnosis (1) Cardiogenic shock Plan: Overall poor prognosis. Will try to dialyze her again once we get the blood pressure up. Ideally she needs to be in any facility bed you have CRRT . Discussed this with hospitalist. (2) Acute and chronic respiratory failure Qualifiers: Respiratory failure complication: unspecified whether with hypoxia or hypercapnia Qualified Code(s): J96.20 - Acute and chronic respiratory failure, unspecified whether with hypoxia or hypercapnia Is this a current diagnosis for this admission?: YesPlan: As mentioned earlier. She will most likely be intubated. Discussions need to be done with the family on whether she needs to be on a full code given her severe comorbidities and whether she needs to be transferred to a tertiary care hospital for initiation of CRRT (3) CHF (congestive heart failure) Is this a current diagnosis for this admission?: YesPlan: Mentioned earlier. (4) Hypotension Plan: Most likely cardiogenic shock. Discussions as done earlier. She is quite critical given her tight aortic stenosis and severe comorbidities and age. We' ll discuss with the family about taking her off the DO NOT RESUSCITATE status and keeping on comfort measures. (6) ESRD (end stage renal disease) Is this a current diagnosis for this admission?: YesPlan: Dialysis was done and was supervised. Could not extract more than a liter of fluid. She was dropping her blood pressures. Discuss orders with the treating nurse. Ideally needs to be on CRRT if she continues to remain full code.
[2016-12-30] MEDS ORDERED: METOPROLOL TARTRATE PF/INJ 5 MG/5 ML SDV IV ONE (19:50)
[2016-12-30] MEDS ORDERED: PHENYLEPHRINE HCL INJ/PF 10 MG/1 ML SDV ONE (19:54)
[2016-12-30 20:50] LABS: ARTERIAL BLOOD BASE EXCESS -18.1 mmol/L; ARTERIAL BLOOD O2 SATURATION 84.6 % (94-98)
[2016-12-30 21:01] LABS: ALANINE AMINOTRANSFERASE 31 U/L (9-52); ALBUMIN 2.2 g/dL (3.5-5.0); ALKALINE PHOSPHATASE 51 U/L (38-126); ANION GAP 19 (5-19); ASPARTATE AMINO TRANSFERASE 80 U/L (14-36); BILIRUBIN,TOTAL 0.6 mg/dL (0.2-1.3); CALCIUM 7.8 mg/dL (8.4-10.2); CARBON DIOXIDE 15 mmol/L (22-30); CHLORIDE 105 mmol/L (98-107); CREATININE RESULT 3.17 mg/dL (0.52-1.25); GLUCOSE 262 mg/dL (75-110); MAGNESIUM 1.7 mg/dL (1.6-2.3); POTASSIUM 4.4 mmol/L (3.6-5.0); SODIUM 139.3 mmol/L (137-145)
--- NOTE | 2016-12-30 21:08 | EKG REPORT ---
SEVERITY:- ABNORMAL ECG - EXTREME TACHYCARDIA WITH WIDE COMPLEX, NO FURTHER RHYTHM ANALYSIS ATTEMPTED THIS IS LIKELY S.TACHYCARDIA WITH LBBB, NEW ONSET, COMPARED TO 12/26/15 EKG.. : Confirmed by: Rahul Quintero MD 30-Dec-2016 21:07:48
--- NOTE | 2016-12-30 21:08 | EKG REPORT ---
SEVERITY:- ABNORMAL ECG - INCOMPLETE ANALYSIS DUE TO MISSING DATA IN PRECORDIAL LEAD(S) SINUS TACHYCARDIA NONSPECIFIC INTRAVENTRICULAR CONDUCTION DELAY EXTENSIVE ANTERIOR INFARCT, ACUTE : Confirmed by: Rahul Quintero MD 30-Dec-2016 21:08:09
[2016-12-30 21:14] LABS: BLOOD UREA NITROGEN 17 mg/dL (7-20)
--- NOTE | 2016-12-30 21:17 | PDOC PROGRESS REPORT ---
Subjective Progress Note for:: 12/30/16 Subjective:: During the midafternoon, the patient developed chest pain and progressively worsening shortness of breath. She required the use of BiPAP. Also during this time, there was a documented rise in troponins. At 4 AM it was 0.117, later 6.240, and by 4 PM it was 17.6. Prior to that, there was an attempt at hemodialysis, but only 700 mL were removed because of the patient's tendency to hypotension. Efforts were made today to treat the patient's chest pain with nitroglycerin and morphine. A dobutamine drip was started for the hypotension, with hopes that this would help during another possible dialysis session tomorrow. I discussed this with Dr. Avitia, nephrology. The patient was seen in consultation by Dr. Rahul Quintero, the patient's dehydrogenation supervisor. He brought in extensive records from past encounters with the patient. Cardiology considerations included aortic stenosis, mitral stenosis, coronary artery disease with previous infarction to the inferior and inferolateral ledesma, extensive peripheral arterial disease. She has carotid artery stenosis, renal artery stenosis, subclavian steal syndrome, chronic mesenteric artery ischemia. Dr. Quintero recommended that the patient be transferred to [place] as she had clearly expressed wishes to "do everything" and the family was supportive of that. He felt the patient needed attention not only to her ischemic heart disease, but also to her severe valvular heart disease. While making efforts to discuss the case with Drs. at [place], the patient had a sudden cardiac arrest. A CODE BLUE was called. I was present at the first to the resuscitation. She received 2 rounds of epinephrine and atropine as well as one bolus of bicarbonate. She eventually required 2 shocks. Eventually a pulse and pressure were regained it. The patient was intubated during that resuscitation. Before discussing the case with the dehydrogenation supervisor at [place], the patient had a second cardiac arrest. Another CODE BLUE was called. This was attended by Dr. Funes. Again the patient survived. I discussed all of these things with Dr. Hernandez, the CCU fellow at [place] who coordinates these transfers. 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 He suggested that if the patient stabilized, a transfer could be reconsidered in 24-48 hours. Physical Exam Vital Signs: Temp Pulse Resp BP Pulse Ox 97.4 F 119 H 80 H 172/129 H 54 L 12/30/16 18:00 12/30/16 18:00 12/30/16 20:10 12/30/16 20:10 12/30/16 20:10 Intake & Output 12/29/16 12/30/16 12/31/16 06:59 06:59 06:59 Output Total 0 Balance 0 Weight 67.2 kg Results Laboratory Results: 12/30/16 12/30/16 12/30/16 08:37 10:54 18:40 Carbonic Acid 1.04 L HCO3/H2CO3 Ratio 18:1 ABG pH 7.38 ABG pCO2 34.4 L ABG pO2 72.2 L ABG HCO3 19.7 L ABG O2 Saturation 94.4 ABG Base Excess -4.7 VBG pH 7.16 L* VBG pCO2 44.4 VBG HCO3 15.3 L VBG Base Excess -13.1 FiO2 60% Lactic Acid 3.3 H 12/30/16 20:40 Carbonic Acid 1.74 H HCO3/H2CO3 Ratio 7:1 ABG pH 6.98 L* ABG pCO2 57.7 H ABG pO2 73.6 L ABG HCO3 13.3 L ABG O2 Saturation 84.6 L ABG Base Excess -18.1 VBG pH VBG pCO2 VBG HCO3 VBG Base Excess FiO2 100% Lactic Acid 12/30/16 12/30/16 12/30/16 10:54 10:54 16:10 Creatine Kinase 370 H 407 H CK-MB (CK-2) 27.60 H Troponin I 6.240 12/30/16 16:10 Creatine Kinase CK-MB (CK-2) 37.50 H Troponin I 17.600 Impressions: Chest X-Ray 12/30/16 18:04 IMPRESSION: STABLE APPEARANCE OF THE CHEST INCLUDING MULTIFOCAL AIRSPACE DISEASE BILATERAL PLEURAL EFFUSIONS. DIFFERENTIAL INCLUDES ASYMMETRIC PULMONARY EDEMA, MULTIFOCAL PNEUMONIA, AND ARDS. Assessment & Plan - Diagnosis (1) Acute and chronic respiratory failure with hypoxia Is this a current diagnosis for this admission?: Yes (2) CHF (congestive heart failure) Is this a current diagnosis for this admission?: Yes (3) Pneumonia Qualifiers: Pneumonia type: due to unspecified organism Laterality: bilateral Lung location: unspecified part of lung Qualified Code(s): J18.9 - Pneumonia , unspecified organism Is this a current diagnosis for this admission?: Yes (4) Lactic acidosis Is this a current diagnosis for this admission?: Yes (6) CAD (coronary artery disease) Is this a current diagnosis for this admission?: Yes (7) Elevated troponin Is this a current diagnosis for this admission?: Yes (8) ESRD (end stage renal disease) Is this a current diagnosis for this admission?: Yes
[2016-12-30 21:39] LABS: HEMATOCRIT 34.3 % (36.0-47.0); HGB HCT DIFFERENCE -2.5; MEAN CORPUSCULAR HEMOGLOBIN 35.2 pg (27.0-33.4); MEAN CORPUSCULAR HGB CONC 30.9 g/dL (32.0-36.0); MEAN CORPUSCULAR VOLUME 114 fl (80-97); RED BLOOD COUNT 3.01 10^6/uL (3.72-5.28); RED CELL DISTRIBUTION WIDTH 14.7 % (11.5-14.0); WHITE BLOOD COUNT 29.6 10^3/uL (4.0-10.5)
[2016-12-30 21:50] LABS: HEMOGLOBIN 10.6 g/dL (12.0-15.5)
[2016-12-30 21:57] LABS: BAND NEUTROPHILS % (MANUAL) 2 % (3-5); BASOPHILS % (MANUAL) 1 % (0-2); EOSINOPHILS % (MANUAL) 0 % (0-6); LYMPHOCYTES % (MANUAL) 19 % (13-45); TOTAL CELLS COUNTED 100
[2016-12-30 21:58] LABS: BURR CELLS 2+; HELMET CELLS SLIGHT; OVALOCYTES SLIGHT; POIKILOCYTOSIS 2+
[2016-12-30] MEDS ORDERED: ALLOPURINOL 100 MG TABLET PO SCH (22:00)
[2016-12-30] MEDS ORDERED: SODIUM BICARBONATE 8.4% INJ 50 MEQ/50 ML DISP.SYRIN IV ONE (22:00)
--- NOTE | 2016-12-30 22:20 | CONSULTATION REPORT E ---
Consultation Report NAME: CEM SANDERS : 1935 AGE: 81Y DATE: 12/30/2016 606 A TO: ALLY JIMENEZ M.D. FROM: JUAN CARLOS ORTIZ M.D. Requesting Physician CHIEF COMPLAINT: Congestive heart failure, cardiogenic shock, acute TN, and pneumonia. HISTORY OF PRESENT ILLNESS: This 81-year-old female was brought to the hospital by rescue squad for severe respiratory distress. Very scant history from family and patient obtained. In the ER she was found to have sinus tachycardia, anterior TN, wide QRS which represented IVCD or left bundle branch block and this is new compared to a previous older EKGs. Her chest x-ray showed bilateral consolidation, right greater than left, possible effusion, cardiomegaly, atherosclerosis, and impression was congestive heart failure versus bilateral pneumonia or both. Her initial blood pressure was 107/66, respirations 21, and she was put on CPAP with improvement in her oxygenation which started out as 79%. She was then admitted to the ICU. The initial troponin I was 0.117 and subsequently bigg to 6.24 and eventually to 17.6 most recently. On 100% oxygen on admission, her PO2 was 179, PCO2 was 45.5 and pH was 7.12, representing a combination of respiratory acidosis and metabolic acidosis with elevated lactic acid of 3.3. There is a vague history of whether or not the patient had missed dialysis and so over the course of ? days. After admission she was put on hemodialysis, and I was told that they got a -700 mL from her and there was improvement in oxygenation and clearing of bilateral basilar rales, but within an hour or so, the rales returned and patient started feeling worse and started to complain of right-sided and then left-sided chest pains which responded to nitroglycerin. She had been on CPAP mask the entire time. Patient has a very complicated medical and indeed cardiac history. I started seeing patient approximately 2 years ago, at which time she already had a non-ST elevation TN, an old anterior and inferior TN by myocardial perfusion testing and then in July 2015, MPI showed reversible ischemia in the apical inferior wall and the basal inferolateral wall. Her echocardiogram showed moderate aortic stenosis with peak pressure gradient of 69.6 and mean pressure gradient of 32.8. She has moderate left ventricular hypertrophy and there was also moderate/severe mitral stenosis and moderate mitral regurgitation and R ventricular systolic pressure of 55. In 2014, I discussed in multiple sessions with the patient and eventually family, her son Gilbert, regarding her high-risk situation in which she has significant coronary artery disease and significant aortic stenosis and mitral stenosis and that her general health and multiple other medical conditions would prohibit surgical operations. However, transcatheter techniques have advanced to the point that it becomes available for high-risk patients such as this patient. Several arrangements were made with [facility] to get the patient referred for cardiac catheterization and then for her to be evaluated by the team doing transcatheter aortic valve replacement to see if she is candidate for TAVR. Cardiac catheterization appointments were set up with the patient but my office was told she never came for those appointments. My office made multiple attempts to connect with patient at home and through cell phone of her son, Gilbert, but it appeared that they were not interested and could never speak to them until the next appointment. In July 2015, patient finally told me that she was not going to consider cardiac catheterization and transcatheter treatment of her aortic stenosis. Throughout 2015 multiple times, the patient reaffirmed those decisions. Then patient's chronic kidney failure advanced to end-stage renal disease and this required hemodialysis, which she was able to get on and had done fairly well for at least the last 9 months, during which time she did not have any heart failure symptoms and no history of any anginal symptoms that she was willing to tell me about. The conditions leading up to this admission remained murky from the ER notes that I read, but it appears that patient has a definite change in the EKG even though she did not have any ST elevation TN, a serial troponin I and the onset of severe recurrent chest pains over the last 1-1/2 hours tells me that she has high-risk ACS and impending cardiogenic shock with congestive heart failure being temporarily alleviated by partial hemodialysis. There was also a question of sepsis with a white cell count of 25,000 and chest x-ray suggestive of bilateral pneumonia, and patient had been given IV antibiotics to cover that already. At the bedside, patient was alert and oriented, wearing a CPAP mask, although her complexion was dusky. She requested to hold my hand and requested that I help her. I asked her in what way she wanted me to help her with the current situation of her undergoing an acute TN with hemodynamic instability and congestive heart failure/pulmonary edema. I told her that her coronary arteries probably are occluded and she is in the process of having a heart attack with all these complications further complicated by her moderate severe aortic stenosis and mitral stenosis. The patient in no uncertain terms this time requested that I do everything to save her, in the presence of Gilbert. I asked her if she was willing to be transferred to a bigger hospital since we are too small of a hospital to deal with complicated TN and we do not have percutaneous coronary intervention capabilities, even if we did, she would need a [facility] which can do high-risk PCI procedures with Impella support. She again requested that I do my best to help her. I,therefore, in person discussed with the hospitalist on duty. I gave him the details of her echo and other coronary artery disease history and recommended that he call [facility] to transfer her so that she can be offered maximal chance of survival. Then another hospitalist team took over and at the beginning of the shift, the patient arrested and was resuscitated with intubation in place of the BiPAP mask. Her rhythm came back and she was having tachycardia at 160. I then recommended that we might be able to slow it with small doses of IV Lopressor 2.5 mg since the blood pressure was in the mid 120s systolic then With her being successful in surviving the first cardiac arrest and resuscitation attempt, I advised the hospitalist to once again try calling [facility] for transfer out once she is hemodynamically more stable. PAST MEDICAL HISTORY: in addition to above 1. Diabetes mellitus, most recent A1c 5.5%. 2. End-stage renal disease on hemodialysis. 3. Hypertension. 4. AV fistula acquired. 5. 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 6. PAD = Right superficial femoral arterial stent, 2005. 7. Carotid artery stenosis. 8. Renal artery stenosis. 9. Subclavian steal syndrome. 10. Chronic mesenteric artery ischemia. 11. CVA. 12. COPD. 13. Hairy cell leukemia. ALLERGIES: 1. TEGRETOL. 2. GLUCOPHAGE. PAST SURGICAL HISTORY: 1. Partial colectomy x colon cancer. 2. Tonsillectomy. 3. AV fistula repair ligated. 4. Colostomy. 5. 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 SOCIAL HISTORY: Patient does not smoke. She does not drink. Occasional cup of coffee. PHYSICAL EXAMINATION: VITAL SIGNS: Showed admission blood pressure was 107/66, respirations 21, subsequently blood pressure dropped to 97/39 and eventually stabilized to 100/81. GENERAL: The patient has a dusky complexion, but was alert and oriented. NECK: JVP was distended. CARDIOVASCULAR: Showed 3/6 systolic ejection murmur in the aortic area radiating up into the clavicles and 3/6 mitral regurgitation murmur at the apex. LUNGS: Bilateral basilar rales were heard consistent with pulmonary edema plus/minus bilateral pneumonia. LABORATORY DATA: Showed troponin I of 0.117, increasing to 6.24, further increased to 17.6 on consecutive estimations throughout today. Her CBC showed hemoglobin of 12.9, hematocrit 25.4, platelets 195,000. Her BUN was 46, creatinine 6.78, sodium 137, potassium 5.0. Lactic acid was 3.3. ASSESSMENT AND PLAN: 1. Pulmonary edema with initial improvement by one session of hemodialysis and then return of pulmonary edema post-dialysis with simultaneous occurrence of chest pains lasting greater than 1.5 hours with progressive increase of troponin I to 17.6 in last estimation. 2. Acute coronary syndrome, suspect ST elevation TN (LBBB pattern which was new). Patient is having a high troponin I high risk myocardial infarction with a very poor prognosis and will benefit from stat primary PCI under hemodynamic support. This is only available at [facility] using the Impella pump pre- cardiac catheterization such that PCI can be done to reperfuse stenosis of her coronary arteries. She will need to be transferred out by helicopter service at the first available [facility] capable of providing complex, high-risk PCI for acute TN. If she survives that procedure and gets further stabilized, then she could be evaluated by the transcatheter aortic valve replacement team for purpose of transcatheter aortic valve replacement and further consideration for mitral valvuloplasty by catheter.This is a long shot. 3. End-stage renal disease on dialysis. 4. Possible bilateral pneumonia. Discussed with pt son, and 2 different hospitalist teams. DICTATING PHYSICIAN: ALLY JIMENEZ M.D. [id number] PHY#: [id number] ID: [id number] JOB#: [id number] ACCT: [id number] cc:ALLY JIMENEZ M.D. > [facility]
[2016-12-30] MEDS: DEXTROSE 5%-WATER 250 ML with PHENYLEPHRINE HCL 40 MG IV PRN ×2 (22:52)
[2016-12-30 23:34] LABS: ARTERIAL BLOOD BASE EXCESS -8.7 mmol/L; ARTERIAL BLOOD O2 SATURATION 93.1 % (94-98)
[2016-12-31] MEDS: DEXTROSE 5%-WATER 250 ML with PHENYLEPHRINE HCL 40 MG IV PRN ×2 (01:41)
[2016-12-31] MEDS: PIPERACILLIN SODIUM/TAZOBACTAM 2.25 GM in NORMAL SALINE 50 ML IV SCH (01:42)
[2016-12-31] MEDS: NITROGLYCERIN 2% OINTMENT 1 GM PACKET TP SCH (01:43)
[2016-12-31] MEDS: HEPARIN SOD (PORCINE) 5,000 UNIT/ML 1 ML SYRINGE SUBCUT SCH (01:43)
[2016-12-31] MEDS ORDERED: NORMAL SALINE 1000 ML 500 ML IV ONE (03:15)
[2016-12-31] MEDS ORDERED: SODIUM BICARBONATE 8.4% INJ 50 MEQ/50 ML DISP.SYRIN ONE (03:47)
[2016-12-31 04:49] VITALS: BP 61/27
--- NOTE | 2016-12-31 09:29 | Progress Note ---
Provider Note Provider Note: 12/30/2016: Shortly after start of the evening shift, and shortly after patient had been resuscitated by the daytime hospitalist from cardiac arrest, patient suffered a second cardiac arrest. Full ACLS maneuvers were carried out. Primarily pulseless electrical activity, with a quite brief episode of ventricular fibrillation, which resolved immediately with defibrillation. Standard ACLS maneuvers were carried out. We eventually were able to resuscitate the patient. Situation was discussed outside the patient's room with son. I told him she remained extremely sick, and could very well suffer cardiac arrest again. Following morning, on the , at 3:24 AM, ACLS CODE KEM was once again called. Once again, patient was in pulseless electrical activity other than a quite brief episode of ventricular fibrillation, which again responded to a single defibrillation. Unfortunately, we were not able to resuscitate the patient and efforts were stopped after 26 minutes. Time of 3:50 AM. Earlier, shortly after this last episode of cardiac arrest occurred, family was updated as to the current situation and ongoing resuscitation efforts. Shortly after time of , family was notified of her passing.
[2016-12-31] MEDS ORDERED: FAMOTIDINE INJ/PF 20 MG/2 ML SDV IV SCH (10:00)
[2016-12-31] MEDS ORDERED: ASPIRIN 81 MG TABLET, CHEWABLE PO SCH (10:00)
[2017-01-01] MEDS ORDERED: LEVOFLOXACIN 500 MG/D5W RTU 500 MG/100 ML RTUPB IV SCH (10:00)
--- NOTE | 2017-01-24 10:35 | DEATH SUMMARY E ---
Summary NAME: CEM SANDERS : 1935 AGE: 81Y ADMITTED: 12/30/2016 : 12/31/2016 FINAL DIAGNOSES: Pneumonia, with resulting acute on chronic respiratory failure, elevated troponin, and chronic end-stage renal disease. HISTORY OF PRESENT ILLNESS: An 81-year-old female with rather complicated past medical history, including hypertension, end-stage renal disease, on hemodialysis, non home O2 dependent COPD, multiple other diagnoses. The patient was admitted for the above diagnoses. Please refer to transcribed history and physical for more complete discussion of same. The patient suffered cardiac arrest toward the end of the day shift on 12/30/2016, but was successfully resuscitated. Consult had been obtained with Dr. Quintero, our local vehicle body maker who had followed the patient as an outpatient. He recommended transfer to [facility]. However, discussion between the daytime hospitalist and the CCU fellow at [place] resulted in the overall opinion that the patient was simply too unstable for transfer there. Shortly after the start of the evening shift, she suffered a 2nd cardiac arrest, primarily pulseless electrical activity. Was eventually resuscitated. The following morning, at 3:24 a.m., ACLS mell ramirez was once again called. Once again noted to be in primarily pulseless electrical activity. Unfortunately, we were not able to resuscitate the patient and efforts were stopped after 26 minutes. Time of 3:50 a.m. Shortly after time of , family was notified of her passing. Please refer to provider note in the chart for more complete discussion of these events. DICTATING PHYSICIAN: JUAN CARLOS ORTIZ M.D. [id number] PHY#: [id number] ID: [id number] JOB#: [id number] ACCT: [id number] cc:JUAN CARLOS ORTIZ M.D. >
== END 2016-12-31 03:51 | disposition left against medical advice (07) | DRG 871 ==
LOC: ER 03:54 → UNDOADMIN 06:20 → EH 06:20 → ICU 12:50
PROVIDERS: ADMIT Family Medicine; ATTEND Family Medicine
PROC: 5A1D00Z (ICD-10-PCS; principal; 2016-12-30)
PROC: 0BH17EZ Insertion of Endotracheal Airway into Trachea, Via Natural or Artificial Opening (ICD-10-PCS; 2016-12-30)
PROC: 5A1935Z Respiratory Ventilation, Less than 24 Consecutive Hours (ICD-10-PCS; 2016-12-30)
PROC: 5A2204Z Restoration of Cardiac Rhythm, Single (ICD-10-PCS; 2016-12-30)
DX: A41.9 Sepsis, unspecified organism (principal); R65.21 Severe sepsis with septic shock; J18.9 Pneumonia, unspecified organism; J96.21 Acute and chronic respiratory failure with hypoxia; N18.6 End stage renal disease; I21.09 ST elevation (STEMI) myocardial infarction involving other coronary artery of anterior wall; I13.2 Hypertensive heart and chronic kidney disease with heart failure and with stage 5 chronic kidney disease, or end stage renal disease; I50.32 Chronic diastolic (congestive) heart failure; C91.40 Hairy cell leukemia not having achieved remission; J44.0 Chronic obstructive pulmonary disease with (acute) lower respiratory infection; E11.22 Type 2 diabetes mellitus with diabetic chronic kidney disease; E11.51 Type 2 diabetes mellitus with diabetic peripheral angiopathy without gangrene; R74.8 Abnormal levels of other serum enzymes; Z99.2 Dependence on renal dialysis; J44.9 Chronic obstructive pulmonary disease, unspecified; E87.5 Hyperkalemia; Z93.3 Colostomy status; Z85.038 Personal history of other malignant neoplasm of large intestine; Z90.49 Acquired absence of other specified parts of digestive tract; I25.2 Old myocardial infarction; I25.10 Atherosclerotic heart disease of native coronary artery without angina pectoris; Z86.73 Personal history of transient ischemic attack (TIA), and cerebral infarction without residual deficits; K21.9 Gastro-esophageal reflux disease without esophagitis; M19.90 Unspecified osteoarthritis, unspecified site; I44.7 Left bundle-branch block, unspecified; I46.9 Cardiac arrest, cause unspecified; F32.9 Major depressive disorder, single episode, unspecified; D64.9 Anemia, unspecified; I35.0 Nonrheumatic aortic (valve) stenosis; Z79.82 Long term (current) use of aspirin; Z88.8 Allergy status to other drugs, medicaments and biological substances; Z79.899 Other long term (current) drug therapy; Z78.1 Physical restraint status
CPT/HCPCS: 36415; 36600; 71010; 80053; 82550; 82553; 82803; 82962; 83605; 83735; 83880; 84484; 85025; 85610; 87040; 87070; 87205; 87804; 92950; 93005; 93010; 94002; 94003; 94660; 96365; 96367; 99291; 99292; J0171; J0282; J0610; J0692; J1644; J1815; J1956; J2270; J2370; J2543; J3370; J3490; J7030; J7060; J7620